=== PATIENT | female | born 1950 | race Caucasian/White ===

== ENCOUNTER 2016-06-16 | Emergency (ER) | payer MEDICARE, OTHER ==
[~2016-06-16] MED LIST: DULERA 200 MCG8.8 GM INH; KLONOPIN0.5 MG PO; LOVENOX30 MG/0.3 SQ; NORCO 10-325 T1 EACH PO; NORVASC5 MG PO; PROTONIX 40 MG40 M1 PO; SYNTHROID50 MCG PO; TENORMIN 25 MG25 MG PO
== END 2016-06-17 00:05 | disposition left against medical advice (07) ==
DX: Z53.21 Procedure and treatment not carried out due to patient leaving prior to being seen by health care provider (principal)
CPT/HCPCS: 93005

== ENCOUNTER → 2016-06-18 | Outpatient (CLI) | payer MEDICARE, OTHER ==
[2016-06-18 13:55] LABS: HEMOGLOBIN 15.4 gm/dl (12.3-15.3); RED BLOOD COUNT 4.58 M/UL (4.00-5.10); WHITE BLOOD COUNT 7.8 K/UL (4.5-11.0)
== END ==
PROVIDERS: Physician Assistant
DX: R31.9 Hematuria, unspecified (principal); R10.9 Unspecified abdominal pain
CPT/HCPCS: 36415; 80048; 82150; 83690; 85025

== ENCOUNTER → 2016-06-18 | Outpatient (CLI) | payer MEDICARE, OTHER | LOC: KOH-I 12:00 | DX: R31.9 Hematuria, unspecified (principal) | CPT/HCPCS: 74176 ==

== ENCOUNTER → 2020-05-25 | Outpatient (CLI) | payer MEDICARE, OTHER ==
[~2020-05-25] MED LIST changes: +AZITHROMYCIN500 MG PO; +CIPROFLOXACIN500 M1 PO; +ESOMEPRAZOLE MA40 MG PO; +MACROBID 100 M100 MG PO; +METRONIDAZOLE500 MG PO; +ONDANSETRON HCL4 MG PO; +SPIRIVA HANDIH18 MCG INH; +TESSALON PERLE100 MG PO; +TIROSINT50 MCG PO; +VENTOLIN HFA 66.7 GM INH; +ZOFRAN ODT 4 MG4 MG SL; +ZOFRAN4 MG PO
[2020-05-25 10:47] LABS: HEMOGLOBIN 15.4 gm/dl (12.3-15.3); RED BLOOD COUNT 4.36 M/UL (4.00-5.10); WHITE BLOOD COUNT 8.1 K/UL (4.5-11.0)
== END ==
LOC: LAB 09:52
PROVIDERS: Physician Assistant
DX: R10.9 Unspecified abdominal pain (principal)
CPT/HCPCS: 36415; 80048; 82150; 83690; 85025; 86705

== ENCOUNTER 2020-08-09 01:14 | Emergency (ER) | payer MEDICARE, OTHER ==
[2020-08-09 02:38] LABS: HEMOGLOBIN 14.7 gm/dl (12.3-15.3); RED BLOOD COUNT 4.4 M/UL (4.00-5.10)
== END 2020-08-09 07:50 ==
LOC: ER1 01:14
PROVIDERS: Internal Medicine
DX: K92.2 Gastrointestinal hemorrhage, unspecified (principal); K21.9 Gastro-esophageal reflux disease without esophagitis; I10 Essential (primary) hypertension; F17.210 Nicotine dependence, cigarettes, uncomplicated; Z20.822 Contact with and (suspected) exposure to COVID-19
CPT/HCPCS: 0240U; 80053; 82272; 85025; 85610; 85730; 93005; 96374; 99285; C9113

== ENCOUNTER → 2020-08-12 | Outpatient (CLI) | payer MEDICARE, OTHER | LOC: OPSV 07:53 → CT 10:00 | DX: R10.9 Unspecified abdominal pain (principal); K92.1 Melena; K92.0 Hematemesis; R11.0 Nausea; N28.9 Disorder of kidney and ureter, unspecified | CPT/HCPCS: 36415; 82565; 96360; J7030; Q9965 ==

== ENCOUNTER 2021-03-14 12:01 | Emergency (ER) | payer MEDICARE, OTHER ==
[2021-03-14 13:17] LABS: HEMOGLOBIN 14.7 gm/dl (12.3-15.3); RED BLOOD COUNT 4.37 M/UL (4.00-5.10); WHITE BLOOD COUNT 5.2 K/UL (4.5-11.0)
[2021-03-15 07:11] LABS: HBSAG SCREEN Negative (Negative); HEP A AB, IGM Negative (Negative); HEP B CORE AB, IGM Negative (Negative); HEP C VIRUS AB <0.1 (0.0-0.9)
== END 2021-03-14 18:10 | disposition home or self-care (01) ==
LOC: ER1 12:01
PROVIDERS: Emergency Medicine
DX: R10.13 Epigastric pain (principal); M54.9 Dorsalgia, unspecified; R94.5 Abnormal results of liver function studies; I10 Essential (primary) hypertension; F17.210 Nicotine dependence, cigarettes, uncomplicated
CPT/HCPCS: 36415; 80053; 80074; 80307; 81001; 82550; 82553; 83690; 83874; 84484; 85025; 93005; 99284; Q9967

== ENCOUNTER → 2021-04-04 | Outpatient (CLI) | payer MEDICARE, OTHER | LOC: US 09:08 | DX: R10.9 Unspecified abdominal pain (principal); R63.4 Abnormal weight loss; R74.8 Abnormal levels of other serum enzymes; N26.1 Atrophy of kidney (terminal); N28.1 Cyst of kidney, acquired | CPT/HCPCS: 76700 ==

== ENCOUNTER → 2021-07-05 | Outpatient (CLI) | payer MEDICARE, OTHER | LOC: KOH-I 11:09 | DX: F17.210 Nicotine dependence, cigarettes, uncomplicated (principal) | CPT/HCPCS: 71271 ==

== ENCOUNTER → 2022-01-01 | Outpatient (CLI) | payer MEDICARE, OTHER | LOC: CT 13:58 | DX: N28.9 Disorder of kidney and ureter, unspecified (principal); R79.89 Other specified abnormal findings of blood chemistry; M79.606 Pain in leg, unspecified; I70.201 Unspecified atherosclerosis of native arteries of extremities, right leg; I77.1 Stricture of artery | CPT/HCPCS: 36415; 75635; 82565; 84520; 96360; Q9967 ==

== ENCOUNTER → 2022-01-10 | Outpatient (CLI) | payer MEDICARE, OTHER | LOC: MAMO 09:30 | DX: Z12.31 Encounter for screening mammogram for malignant neoplasm of breast (principal); Z78.0 Asymptomatic menopausal state; Z80.3 Family history of malignant neoplasm of breast | CPT/HCPCS: 77063; 77067 ==